=== PATIENT | male | born 1995 | race Caucasian/White ===

== ENCOUNTER 2019-06-23 23:22 | Emergency (ER) | payer OTHER, SELFPAY ==
[2019-06-23 23:28] VITALS: BP 141/79; PULSE 79; RESP 16; TEMP 36.3; O2SAT 100
--- NOTE | 2019-06-23 23:47 | ED.NECK ---
HPI - Neck Pain/Injury General Chief Complaint: Neck Pain/Injury Stated Complaint: neck pain Time Seen by Provider: 06/23/19 23:46 Source: patient and RN notes reviewed Mode of arrival: ambulatory Limitations: no limitations History of Present Illness HPI Narrative: A 24 y/o male presents to the ED with constant, worsening, 11/19, rt neck pain beginning this morning at 10 AM, He states that he was moving some empty boxes when he felt immediate rt neck pain that radiates into his rt shoulder. He reports that the pain has continued to worsen throughout the day. He notes that he has taken Advil, Aleve, and a 5mg Flexeril but denies anything alleviating his pain. He also denies any arm pain, numbness, or focal weakness. MD complaint: neck pain Onset (ago): hour(s) Place: work Radiation: right shoulder Severity: constant Severity scale (1-10): 8 Duration: progressively worsening Relieving factors: none Context: lifting Associated symptoms: none Treatments prior to arrival: other (Advil, Aleve, and a 5mg Flexeril) Review of Systems Review of Systems: All systems reviewed & are unremarkable except as noted in HPI and below Musculoskeletal: Musculoskeletal: Reports neck pain (that radiates into his rt shoulder) and Denies other (arm pain) Neurologic: Denies focal weakness and Denies numbness PMFSH Past Medical History Medical History (Updated 06/24/19 @ 00:07 by Candy Duncan MD) Healthy adult male Surgical History Surgical History (Updated 06/24/19 @ 00:01 by Yogesh Machado) No history of previous surgery Social History Social History (Updated 06/24/19 @ 00:02 by Yogesh Machado) Smoking status: Never smoker Exam Const: General: cooperative, no acute distress and alert Nutritional Appearance: well nourished Orientation/consciousness: patient oriented x3 Limitations: no limitations HENMT: Mouth: Yes lip normal and Yes moist mucous membranes Neck: Neck: tender (mild lower cervical tenderness and tenderness along the rt trapezius) Resp: Effort & Inspection: normal respiratory effort Auscultation: clear to auscultation bilaterally Cardio: Rate: regular rate Rhythm: regular rhythm GI: GI Palp: Yes Soft to palpation and No Tenderness to palpation present (GI) Auscultation: normal bowel sounds Skin: General skin exam: normal color Neuro: General: patient oriented x3 Cognition (Neuro): normal cognition Speech: normal speech Extrem: General: normal to inspection, full ROM and no clubbing, cyanosis or edema Psych: Mental Status: mental status grossly normal Affect: normal affect Attitude: cooperative Course Course Emergency Course: Patient with reproducible tenderness along the right trapezius and no radicular symptoms. Discussed conservative management anti-inflammatories and acetaminophen. Recommended primary care follow-up for further management if not improving. Vital Signs Vital signs: Vital Signs Temperature 97.4 F L 06/23/19 23:28 Pulse Rate 79 06/23/19 23:28 Respiratory Rate 16 06/23/19 23:28 Blood Pressure 141/79 H 06/23/19 23:28 Pulse Oximetry 100 06/23/19 23:28 Temperature 97.4 F L 06/23/19 23:28 Pulse Rate 65 06/24/19 01:00 Respiratory Rate 20 06/24/19 01:00 Blood Pressure 115/71 06/24/19 01:00 Pulse Oximetry 100 06/24/19 01:00 Critical Care Time Critical Care Time Critical Care Time: No Discharge Plan Discharge Clinical Impression: Strain of neck muscle Qualifiers: Encounter type: initial encounter Qualified Code(s): S16.1XXA - Strain of muscle, fascia and tendon at neck level, initial encounter Patient Disposition: Home, Self-Care Condition: Stable Instructions: Neck Pain (ED) Additional Instructions: May take acetaminophen 1000 mg every 6 hours as needed for pain. May take ibuprofen 600 mg every 6 hours as needed for pain. Follow-up with on-call primary care physician for further care if not improving. May use heat and/or ice for sym
[2019-06-24 01:00] VITALS: BP 115/71; PULSE 65; RESP 20; O2SAT 100
== END 2019-06-24 01:00 | disposition home or self-care (01) ==
PROVIDERS: Emergency Provider Emergency Medicine
DX: S16.1XXA Strain of muscle, fascia and tendon at neck level, initial encounter (principal); X50.0XXA Overexertion from strenuous movement or load, initial encounter
CPT/HCPCS: 99281